=== PATIENT | female | born 1985 | race Caucasian/White ===

== ENCOUNTER → 2017-10-28 19:07 | Outpatient (CLI) | payer OTHER, SELFPAY ==
[2017-11-05 11:15] LABS: HPV APTIMA, High Risk Negative (Negative)
== END ==
PROVIDERS: Visit Provider Nurse Practitioner Women's Health
DX: Z12.4 Encounter for screening for malignant neoplasm of cervix (principal)
CPT/HCPCS: 88175; G0145

== ENCOUNTER → 2018-11-12 15:59 | Outpatient (CLI) | payer OTHER, SELFPAY ==
[2018-11-12 09:02] VITALS: BMI 20.9
[2018-11-19 15:26] LABS: HPV APTIMA, High Risk Negative (Negative)
== END ==
PROVIDERS: Referring Provider Nurse Practitioner Women's Health; Visit Provider Nurse Practitioner Women's Health
DX: Z12.4 Encounter for screening for malignant neoplasm of cervix (principal)
CPT/HCPCS: 87624; 88175; G0145

== ENCOUNTER → 2019-07-30 08:53 | Outpatient (CLI) | payer OTHER, SELFPAY ==
[2019-07-15 15:05] VITALS: BMI 20.9
--- NOTE | 2019-07-30 08:53 | BI_ITS ---
MAMMOGRAPHY - BILATERAL DIAGNOSTIC REASON FOR EXAM: Female, 33 years old. 2 week history of left breast lump. PERTINENT HISTORY: Non-contributory. TECHNIQUE: Digital bilateral breast [place] (3D mammographic acquisition) in the CC and MLO projections. 2-D mediolateral oblique (MLO) and craniocaudad (CC) views of both breasts were obtained. CAD: Full Field Digital Mammography with Computer Added Detection was performed. COMPARISON: None. Baseline examination. FINDINGS: Breast Composition: The breasts are extremely dense, which lowers the sensitivity of mammography. There are no dominant masses or suspicious calcifications. No other significant abnormalities are identified. BI/DIAG MAMM W/CAD, BILAT IMPRESSION: Negative diagnostic mammogram. With the patient''s history of a palpable left breast lump, ultrasound follow-up is recommended. ASSESSMENT CATEGORY: BIRADS Category 0: Incomplete. Need additional imaging evaluation. A letter regarding these results will be sent to the patient by the facility within 30 days. Approximately 10% of breast cancers are not detected by mammography. A normal mammogram should not delay biopsy of a clinically suspicious abnormality. Electronically Signed: Ronnie Lane, at 10:02 EDT , Service support ,
--- NOTE | 2019-07-30 08:53 | US_ITS ---
STUDY: ULTRASOUND BREAST - LEFT REASON FOR EXAM: Female, 33 years old. Palpable lump left breast. TECHNIQUE: Axial and longitudinal images of the LEFT breast were performed with a high resolution ultrasound transducer. # OF IMAGES: 21 COMPARISON: Comparison is made with prior mammogram done earlier today. FINDINGS: LEFT Breast: There is a 5 mm x 4 mm x 7 mm cyst at the 4:00 position of the breast at 2 cm from nipple. US/Breast Limited Unilateral IMPRESSION: There is a 5 mm x 4 mm x 2 mm cyst at the 4:00 position of the breast at 2 cm from the nipple. ASSESSMENT CATEGORY: BIRADS Category 2: Benign. A letter regarding these results will be sent to the patient by the facility within 30 days. Electronically Signed: Ronnie Lane, at 10:16 EDT , Service support ,
== END ==
PROVIDERS: Referring Provider Nurse Practitioner Women's Health; Visit Provider Nurse Practitioner Women's Health
DX: N63.10 Unspecified lump in the right breast, unspecified quadrant (principal); N63.20 Unspecified lump in the left breast, unspecified quadrant
CPT/HCPCS: 76642; 77062; 77066; G0279

== ENCOUNTER → 2019-11-23 13:07 | Outpatient (CLI) | payer OTHER, SELFPAY ==
[2019-11-23 09:04] VITALS: BMI 20.9
[2019-11-25 20:39] LABS: HPV Reflexed? NOT INDICATED
[2019-11-30 20:36] LABS: HPV APTIMA, High Risk Negative (Negative)
== END ==
PROVIDERS: Referring Provider Nurse Practitioner Women's Health; Visit Provider Nurse Practitioner Women's Health
DX: Z12.4 Encounter for screening for malignant neoplasm of cervix (principal)
CPT/HCPCS: 88175; G0145

== ENCOUNTER 2020-02-21 14:29 | Outpatient (RCR) | payer OTHER, BC, SELFPAY ==
[2019-11-23 09:04] VITALS: BMI 20.9
== END 2020-02-24 23:59 ==
LOC: LABSPEC 14:29
PROVIDERS: Visit Provider Family Medicine Geriatric Medicine
DX: Z03.818 Encounter for observation for suspected exposure to other biological agents ruled out (principal)
CPT/HCPCS: 87426

== ENCOUNTER 2020-06-07 15:17 | Outpatient (RCR) | payer BC, SELFPAY ==
[2019-11-23 09:04] VITALS: BMI 20.9
== END 2020-06-23 23:59 ==
LOC: LABSPEC 15:17
PROVIDERS: Visit Provider Family Medicine Geriatric Medicine
DX: Z03.818 Encounter for observation for suspected exposure to other biological agents ruled out (principal)
CPT/HCPCS: 87426

== ENCOUNTER 2020-09-14 10:09 | Emergency (ER) | payer BC, SELFPAY ==
[2019-11-23 09:04] VITALS: BMI 20.9
[2020-09-14 10:10] VITALS: BP 129/56; PULSE 62; RESP 17; TEMP 36.3; O2SAT 100; BMI 19.4
--- NOTE | 2020-09-14 10:18 | NURSING ---
NO OLD EKGS
--- NOTE | 2020-09-14 10:23 | EKG12_ITS ---
Test Reason : CP Blood Pressure : / mmHG Vent. Rate : 063 BPM Atrial Rate : 063 BPM P-R Int : 142 ms QRS Dur : 076 ms QT Int : 382 ms P-R-T Axes : 068 065 053 degrees QTc Int : 390 ms Normal sinus rhythm with sinus arrhythmia Normal ECG Confirmed by JANESSA GAYTAN, NACHO ([id number]), staff editor GRACIE SORIA ([id number]) on 09/18/2020 1:16:28 PM Referred By: ANAMARIA Confirmed By:NACHO RIDDLE MD
--- NOTE | 2020-09-14 10:24 | EX.ED.DYSGE1 ---
HPI History of Present Illness Chief Complaint: Chest Pain Detail of Chief Complaint: Rapid heart rate with lightheadedness Informant: patient Onset/Context/Timing Onset: Yesterday Context: Sudden Onset Timing: Intermittent Quality: Palpitations and heart rate greater than 140 Location: Cardiovascular Current Severity: Gone Maximum Severity: Moderate Worsened by: Nothing Relieved by: Nothing Associated Symptoms Associated Symptoms: Lightheadedness and queasiness in stomach Narrative Narrative: Is a 34-year-old woman who presents because of palpitations last night with heart rate of 144 that lasted 10 to 15 minutes. This was associated with lightheadedness and nausea. She had no other symptoms. She denies intolerance hot or cold. She denies weight loss or weight gain. She denies irregular menses. She denies GI symptoms. She is a physical therapist. In the last week or 2 she is not had palpitations or rapid heart rate or chest discomfort with activity. She denies fever, chills night sweats. She denies any other symptoms. There is no history of VTE and she has no risk factors. Prior similar symptoms: No Recent Illness/Hospitalization: No [facility] Medical History (Updated 09/14/20 @ 11:[address] Kaushal Chamberlain MD) Abnormal Pap smear of cervix Home Medications multivitamin with iron 1 tab PO DAILY 07/15/19 [History Last Taken Unknown] Allergy/AdvReac Type Severity Reaction Status Date / Time No Known Allergies Allergy Verified 09/14/20 10:09 Family History Grandmother Skin cancer Grandfather Myocardial infarction Father Diabetes Rheumatoid arthritis Surgical History [place] teeth removed Social History (Updated 09/14/20 @ 10:[address] Kaushal Chamberlain MD) household members: spouse and children Smoking Status: Never smoker alcohol intake: never substance use type: does not use caffeine: No what type of physical activity do you participate in: walking frequency: 1-2 times per week seatbelt use: always do you feel safe at home: Yes additional social history: - [employer] Patient is Mortgage Accounting Clerk ROS ROS ED Constitutional Constitutional ED: Denies chills, fever(s), subjective, sweats or weight loss Eyes Eyes: Denies blurry vision or change in vision ENT ENT ED: Denies ear pain, rhinorrhea or sore throat Cardiovascular Cardiovascular: Reports palpitations and racing heartbeat; Denies chest pain, orthopnea or paroxysmal nocturnal dyspnea Respiratory/Chest Respiratory/Chest: Denies cough, dyspnea, dyspnea on exertion, orthopnea, paroxysmal nocturnal dyspnea or sputum Gastrointestinal Gastrointestinal: Reports nausea; Denies abdominal pain, constipation, diarrhea, melena or vomiting Musculoskeletal Musculoskeletal: Denies arthralgias, back pain, myalgias or neck pain Integumentary Denies rash Neurologic Neurologic: Denies headache(s), paresthesias or weakness Endocrine Endocrinology: Denies cold intolerance or heat intolerance EXAM Physical Exam Const Vital Signs: 09/14/20 10:10 09/14/20 10:46 09/14/20 11:27 Temperature 97.3 F L Temperature Source Temporal Pulse Rate 62 65 Respiratory Rate 17 16 Respiratory Effort Normal Non-Labored Blood Pressure 129/56 H 87/56 L Blood Pressure Mean 80 66 Pulse Ox 100 100 Oxygen Delivery Method Room Air Room Air Positive well nourished and well developed General Appearance ED: well developed and NAD HEENT HEENT Narrative: Head is atraumatic normocephalic. Face is symmetric. Ears normal. Eyes PERRL and EOMs intact bilaterally General Eye ED: Negative for pale conjunctiva or scleral icterus Neck no lymphadenopathy and supple Resp normal respiratory effort and clear to auscultation bilaterally Cardio regular rate, regular rhythm, S1 normal heart sound, S2 normal heart sound and no murmurs GI normal to inspection, nondistended, normoactive bowel sounds, non-tender and non-distended; Negative for hepatosplenomegaly Palpation: soft Back/Spine no CVA tenderness Extremity normal to inspection Extremity Narrative: There is no asymmetry, swelling, discoloration, leg vein distention, palpable cords or tenderness along the distribution of the deep venous system. General Extremety ED: Negative for edema or tenderness General Extremity: Negative for edema Neuro oriented x3, CN's II-XII intact bilaterally and no sensory deficits noted Sensorium / Orientation: alert Motor Exam: strength 5/5 throughout Psych mental status grossly normal Skin no rashes or lesions noted and no wounds MDM MDM MDM Narrative Medical decision making narrative: With an episode of tachycardia will evaluate for anemia, electrolyte abnormality, thyroid disease. EKG was obtained to determine if there is any findings to suggest WPW, late being long, long syndrome etc. She was placed on monitor for continuous monitoring. Lab Data Attestation: I reviewed the patient's lab results. Lab results narrative: Laboratory tests are unremarkable. Patient was made aware of her laboratory results and EKG. Recommended follow-up with Dr. Xavier. Since this is the first time this is occurred and her work-up is negative she does not require urgent follow-up with gluing machine adjuster or outpatient Holter monitor at this time. Labs: Laboratory Results - last 24 hr 09/14/20 09/14/20 10:33 10:33 WBC 4.2 L RBC 4.62 Hgb 14.2 Hct 41.6 MCV 90.0 MCH 30.7 MCHC 34.1 RDW Std Deviation 40.6 RDW Coeff of Hilda 12.3 Plt Count 172 MPV 11.1 Sodium 139 Potassium 3.9 Chloride 104 Carbon Dioxide 30.0 Anion Gap 5 BUN 11 Creatinine 0.86 Estim Creat Clear Calc 68.45 Est GFR (MDRD) Af Amer 98 Est GFR (MDRD) Non-Af 81 BUN/Creatinine Ratio 12.9 Glucose 117 H Calcium 9.0 TSH 3.02 EKG Initial EKG: Attestation: I personally reviewed and interpreted this EKG as follows: Interpretation: Sinus Rhythm (Sinus rhythm with a ventricular rate of 63 and respiratory variance, which is a normal variant. FL interval 242 ms. QS duration 76 ms. QT duration 382 ms. [place] is normal. The EKG is normal.) Discharge Plan Triage Chief Complaint: Chest Pain ED Provider: Kaushal Chamberlain Dx/Rx/DC Orders Clinical Impression: Tachycardia, paroxysmal Instructions: ED About Arrhythmias, ED Tachycardia: PAT Prescriptions: No Action multivitamin with iron [Daily Multiple Vitamins/Iron] Tablet 1 tab PO DAILY RF: 0 Primary Care Provider: Shaniqua Werner Referrals: Shaniqua Werner DO [Primary Care Provider] - As Needed Disposition Disposition: Home, Self Care
[2020-09-14 10:40] LABS: Hematocrit 41.6 % (37-47); Hemoglobin 14.2 g/dL (12.0-15.0); Mean Corp Hgb Conc 34.1 g/dL (32-36); Mean Corpuscular Hgb 30.7 pg (27.0-32.0); Mean Platelet Vol. 11.1 fl (6.2-12.0); Platelet Count 172 K/mm3 (150-450); RBC Distribution Width CV 12.3 % (11.6-14.6); RBC Distribution Width SD 40.6 fl (35.1-43.9); Red Blood Count 4.62 M/mm3 (4.2-5.4); White Blood Count 4.2 K/mm3 (4.4-11.0)
[2020-09-14 11:07] LABS: Anion Gap 5 (5-15); BUN 11 mg/dL (7-18); BUN/Creat Ratio 12.9 RATIO (10-20); Chloride 104 mmol/L (98-107); Creatinine, Serum 0.86 mg/dL (0.55-1.02); EST Glomerular Filtration Rate 81 mL/min (>60); Est Glom Filt Rate - Afr Amer 98 mL/min (>60); Estimated Creatinine Clearance 68.45 ml/min; Glucose 117 mg/dL (74-106); Potassium 3.9 mmol/L (3.5-5.1); Sodium Level 139 mmol/L (136-145); Thyroid Stim Hormone (TSH) 3.02 uIU/mL (0.358-3.74)
[2020-09-14 11:27] VITALS: BP 87/56; PULSE 65; RESP 16; O2SAT 100
[2020-09-14 12:00] VITALS: BP 90/53; PULSE 58; RESP 17; O2SAT 100
== END 2020-09-14 12:01 | disposition home or self-care (01) ==
PROVIDERS: Emergency Provider Emergency Medicine; PCP Internal Medicine
DX: R00.0 Tachycardia, unspecified (principal)
CPT/HCPCS: 80048; 84443; 85027; 93005; 99284

== ENCOUNTER → 2020-09-28 11:51 | Outpatient (CLI) | payer BC, SELFPAY ==
[2020-09-14 10:10] VITALS: BMI 19.4
[2020-09-28 13:22] LABS: D-Dimer Quantitative (DVT/PE) 0.29 FEU/ug/m (0.27-0.49)
== END ==
PROVIDERS: PCP Internal Medicine; Referring Provider Internal Medicine; Visit Provider Internal Medicine
DX: R07.9 Chest pain, unspecified (principal)
CPT/HCPCS: 36415; 85379

== ENCOUNTER 2020-10-24 10:02 | Outpatient (RCR) | payer BC, SELFPAY ==
[2019-11-23 09:04] VITALS: BMI 20.9
== END 2020-10-24 23:59 ==
LOC: LABSPEC 10:02
PROVIDERS: PCP Internal Medicine; Referring Provider Family Medicine Geriatric Medicine; Visit Provider Family Medicine Geriatric Medicine
DX: Z03.818 Encounter for observation for suspected exposure to other biological agents ruled out (principal)
CPT/HCPCS: 87426

== ENCOUNTER 2020-11-23 13:11 | Outpatient (RCR) | payer BC, SELFPAY ==
[2020-10-25 00:13] VITALS: BMI 19.4
== END 2020-11-23 23:59 ==
LOC: EMPH 13:11
PROVIDERS: PCP Internal Medicine; Referring Provider Family Medicine Geriatric Medicine; Visit Provider Family Medicine Geriatric Medicine
DX: Z03.818 Encounter for observation for suspected exposure to other biological agents ruled out (principal)
CPT/HCPCS: 87426

== ENCOUNTER → 2020-12-05 12:35 | Outpatient (CLI) | payer BC, SELFPAY ==
[2020-12-07 16:31] LABS: HPV APTIMA, High Risk Negative (Negative)
== END ==
PROVIDERS: Visit Provider Nurse Practitioner Women's Health
DX: Z12.4 Encounter for screening for malignant neoplasm of cervix (principal)
CPT/HCPCS: 87624; 88175; G0145

== ENCOUNTER → 2020-12-13 08:46 | Outpatient (CLI) | payer BC, SELFPAY ==
--- NOTE | 2020-12-13 08:53 | US_ITS ---
STUDY: ULTRASOUND BREAST - LEFT REASON FOR EXAM: Female, 35 years old. Abnormal screening mammogram. TECHNIQUE: Axial and longitudinal images of the LEFT breast were performed with a high resolution ultrasound transducer. # OF IMAGES: 26 COMPARISON: Comparison is made with prior mammogram dated 12/21/2020. FINDINGS: LEFT Breast: The mammographic abnormality corresponds to a 4 mm x 3 mm x 2 mm cyst at the 12 o''clock position of the breast at 3 cm from the nipple. US/Breast Limited Unilateral IMPRESSION: 4 mm x 10 mm x 2 mm cyst at the 12 o''clock position of the breast at 3 size of the ASSESSMENT CATEGORY: BIRADS Category 2: Benign. A letter regarding these results will be sent to the patient by the facility within 30 days. Electronically Signed: Ronnie Lane MD at 10:54 EDT , Service support ,
--- NOTE | 2020-12-13 08:53 | BI_ITS ---
MAMMOGRAPHY - BILATERAL DIAGNOSTIC REASON FOR EXAM: Female, 35 years old. Left breast pain. PERTINENT HISTORY: Non-contributory. TECHNIQUE: Digital bilateral breast [place] (3D mammographic acquisition) in the CC and MLO projections. 2-D mediolateral oblique (MLO) and craniocaudad (CC) views of both breasts were obtained. CAD: Full Field Digital Mammography with Computer Added Detection was performed. COMPARISON: Comparison is made with prior mammogram dated 07/30/2019. FINDINGS: Breast Composition: The breasts are extremely dense, which lowers the sensitivity of mammography. There are no dominant masses or suspicious calcifications. No other significant abnormalities are identified. There has been no significant change since the prior study. BI/DIAG MAMM W/CAD, BILAT IMPRESSION: Stable bilateral diagnostic mammogram. With the patient''s history of left breast pain, correlation with ultrasound is recommended. ASSESSMENT CATEGORY: BIRADS Category 0: Incomplete. Need additional imaging evaluation. A letter regarding these results will be sent to the patient by the facility within 30 days. Approximately 10% of breast cancers are not detected by mammography. A normal mammogram should not delay biopsy of a clinically suspicious abnormality. Electronically Signed: Ronnie Lane MD at 10:59 EDT , Service support ,
== END ==
PROVIDERS: PCP Internal Medicine; Referring Provider Nurse Practitioner Women's Health; Visit Provider Nurse Practitioner Women's Health
DX: N64.4 Mastodynia (principal)
CPT/HCPCS: 76642; 77062; 77066; G0279

== ENCOUNTER 2021-02-22 10:11 | Outpatient (RCR) | payer BC, SELFPAY ==
[2020-11-24 00:09] VITALS: BMI 19.4
== END 2021-02-23 23:59 ==
LOC: EMPH 10:11
PROVIDERS: PCP Internal Medicine; Referring Provider Family Medicine Geriatric Medicine; Visit Provider Family Medicine Geriatric Medicine
DX: Z03.818 Encounter for observation for suspected exposure to other biological agents ruled out (principal)
CPT/HCPCS: 87426; 87635; U0003; U0005

== ENCOUNTER → 2021-06-30 | Outpatient (CLI) | payer BC, SELFPAY | END | disposition home or self-care (01) | LOC: EMPH 07:25 | PROVIDERS: PCP Internal Medicine; Referring Provider Family Medicine Geriatric Medicine; Visit Provider Family Medicine Geriatric Medicine | DX: Z20.822 Contact with and (suspected) exposure to COVID-19 (principal) | CPT/HCPCS: 87811 ==

== ENCOUNTER → 2021-12-06 | Outpatient (CLI) | payer BC, SELFPAY ==
[2021-12-12 09:00] LABS: HPV APTIMA, High Risk Negative (Negative)
== END | disposition home or self-care (01) ==
PROVIDERS: PCP Internal Medicine; Visit Provider Nurse Practitioner Women's Health
DX: Z12.4 Encounter for screening for malignant neoplasm of cervix (principal)
CPT/HCPCS: 87624; 88175; G0145

== ENCOUNTER → 2024-12-21 | Outpatient (CLI) | payer OTHER, SELFPAY ==
[2024-12-28 15:08] LABS: HPV APTIMA, High Risk Negative (Negative)
== END | disposition home or self-care (01) ==
LOC: LABSPEC 12:27
PROVIDERS: Referring Provider Nurse Practitioner Women's Health; Visit Provider Nurse Practitioner Women's Health
DX: Z12.4 Encounter for screening for malignant neoplasm of cervix (principal)
CPT/HCPCS: 87624; 88175; G0145